=== PATIENT | male | born 2000 | race Caucasian/White ===

== ENCOUNTER 2019-10-23 12:09 | Inpatient (IN) | payer BC ==
[2019-10-23 13:24] LABS: #Monocytes 0.8 thou/uL (0.11-0.59); %Basophils 0.1 % (0.0-1.0); %Eosinophils 0.2 % (0.0-10.0); %Lymphocytes 9.2 % (21.0-51.0); %Monocytes 7.7 % (0.0-10.0); %Neutrophils 82.8 % (42.0-75.0); Hemoglobin 16.1 g/dL (14.0-18.0); Mean Corpuscular HGB CONC 34.5 g/dL (32.0-36.0); Mean Corpuscular Hemoglobin 32.5 pg (27.0-31.0); Mean Corpuscular Volume 94.3 fL (78.0-98.0); Mean Platelet Volume 7.4 fL (7.4-10.4); Platelet Count 259 thou/uL (130-400); RBC Distribution Width 11.9 % (11.5-14.5); Red Blood Cell (RBC) Count 4.97 mill/uL (4.70-6.10); White Blood Cell (WBC) Count 10.9 thou/uL (4.8-10.8)
[2019-10-23 13:49] LABS: ALT (SGPT) 61 U/L (8-55); AST (SGOT) 322 U/L (5-34); Acetaminophen Less than 6.0 mcg/mL (10.0-30.0); Albumin 4.8 g/dL (3.5-5.0); Alcohol 29 mg/dL (Less than 10); Alkaline Phosphatase 68 U/L (40-110); Anion Gap 16 mmol/L (10-20); BUN (Urea Nitrogen) 9 mg/dL (8.9-20.6); Bilirubin, Total 0.5 mg/dL (0.2-1.2); Calc. Creatinine Clearance 0 mL/min (70-130); Carbon Dioxide 26 mmol/L (22-29); Chloride 104 mmol/L (98-107); Estimated GFR-MDRD Greater than 90; Globulin 2.7 g/dL (2.4-3.5); Glucose 87 mg/dL (70-105); Potassium 4.1 mmol/L (3.5-5.1); Protein, Total 7.5 g/dL (6.0-8.3); Salicylate Less than 8.0 mg/dL (15.0-30.0); Sodium 142 mmol/L (136-145)
[2019-10-23] MEDS ORDERED: Multivitamins, Adult 10 ML, Thiamine HCl 100 MG, Folic Acid 1 MG in Dextrose 5 %-0.45 %... IV SCH (14:15)
[2019-10-23 14:17] LABS: CK (CPK) 19880 U/L (30-200)
--- NOTE | 2019-10-23 15:29 | CT ---
LUMBAR SPINE CT SCAN WITHOUT IV CONTRAST: History: Numbness in both legs FINDINGS: No evidence for acute fracture or dislocation of the lumbar spine. Mild levoscoliosis. Very mild liga ment and facet hypertrophic changes. There is a focal small calcification focus within the right SI nerve root. Etiology and significance of this is uncertain. I would doubt that this has anything to do with the patient's acute symptoms. H owever, consideration for a non-emergent follow up MRI with and without IV contrast might be consider ed. IMPRESSION: 1. No fracture or dislocation or other significant acute process. Mild levoscoliosis. 2. Small punctate calcific focus in the right SI nerve root of uncertain etiology or significance. 3. Consider non-emergent follow up MRI with and without contrast for further assessment, particularly if this patient were to have right sided S1 symptoms. POS: ADOLPH
[2019-10-23] MEDS ORDERED: Lorazepam 2 MG/ML VIAL SLOW IVP PRN (17:00)
[2019-10-23] MEDS ORDERED: Sodium Chloride 0.9% 1,000 ML IV SCH (17:00)
[2019-10-23] MEDS ORDERED: Ondansetron ODT 4 MG TAB PO PRN (17:01)
[2019-10-23] MEDS ORDERED: Diazepam 5 MG TAB PO PRN (17:01)
[2019-10-23] MEDS ORDERED: Acetaminophen 325 MG TAB PO PRN (17:01)
[2019-10-23] MEDS ORDERED: Thiamine HCl 200 MG/2 ML VIAL IM SCH ×2 (17:15→22:00)
[2019-10-23 17:57] LABS: Bacteria/HPF None Seen HPF (None Seen); Bilirubin Negative (Negative); Blood, Urine 3+ (Negative); Clarity Clear (Clear); Glucose, Urine (Dipstick) Normal (Negative); Ketone, Urine Negative (Negative); Leukocyte Negative Leu/uL (Negative); Nitrite Negative (Negative); Protein, Urine (Dipstick) 50 mg/dL (Neg-Trace); RBC/HPF None Seen HPF (0-3); Specific Gravity, Urine 1.016 (1.002-1.036); Squamous Epithelial None Seen HPF (0-3); Urobilinogen Normal mg/dL (Less than 2); WBC/HPF 0-3 HPF (0-3); pH, Urine 5.5 (5.0-9.0)
[2019-10-23 18:10] LABS: Medtox Reader # READER 4
[2019-10-23 18:11] LABS: Amphetamine Not Detected (NotDetected); Barbiturates Screen Not Detected (NotDetected); Benzodiazepine Screen Not Detected (NotDetected); Cocaine Metabolite Screen Not Detected (NotDetected); Medtox Control Line Valid? VALID (VALID); Methadone Not Detected (NotDetected); Methamphetamine Not Detected (NotDetected); Opiate Screen Not Detected (NotDetected); Oxycodone Screen Not Detected (NotDetected); Phencyclidine (PCP) Not Detected (NotDetected); THC/Cannabinoid Screen Detected (NotDetected); Tricyclic Screen Not Detected (NotDetected)
[2019-10-23 18:26] LABS: Phosphorus 3.3 mg/dL (2.3-4.7)
--- NOTE | 2019-10-23 19:00 | HP ---
PRIMARY CARE PHYSICIAN: None. CHIEF COMPLAINT: Lower extremity weakness. HISTORY OF PRESENT ILLNESS: The patient is a 19-year-old male with no significant past medical history, who presents to the ER for the above complaint. The patient reports that he began to drink alcohol yesterday afternoon at approximately 17: 30. He reports that he consumed approximately 15 to 20 beers throughout the evening and into the morning. He reports that he went home, he vomited and then fell asleep on concrete. He reports that he fell asleep in a sitting up position. He awoke around 0800 this morning and states that he could not move his legs and had some decreased sensation to both legs. He reports that he grappled with his buddies yesterday evening, but he denies any major trauma, falls or injury to his back. He has no history of any recent procedures or surgeries on his back. He has no history of any IV drug use or diabetes. He denies any recent fever or chills. He denies any abdominal pain. He reports that his last bowel movement was yesterday afternoon, it was formed. Currently, he feels a small sensation to urinate, however, he has not urinated since last night. In the ER, the patient's vital signs were stable. Normal blood pressure, normal pulse, normal respirations, normal temperature, normal SpO2. CT with contrast of his back showed no acute fracture or dislocation or other acute process. There was mild levoscoliosis. There is a small punctate calcific focus in the right SI nerve root of uncertain etiology or significance. Alcohol level was 29. CK 19,880. AST 322 and ALT 61. WBCs of 10.9. The patient was given 2 L of normal saline and one banana bag, IV piggyback and will be admitted to the floor. PAST MEDICAL HISTORY: None. PAST SURGICAL HISTORY: None. SOCIAL HISTORY: The patient currently lives alone. He is in town for an physician practice administrator. He reports that he has alcohol intake every other day. He does not smoke tobacco or cigarettes. He does admit to smoking marijuana. He ambulates without any assistive devices. FAMILY HISTORY: Noncontributory to this case. ALLERGIES: NO KNOWN DRUG ALLERGIES. HOME MEDICATIONS: None. REVIEW OF SYSTEMS: All review of systems are negative unless otherwise stated in the HPI. PHYSICAL EXAMINATION: VITAL SIGNS: Temperature 98.6, blood pressure 109/57, pulse 76, respirations 17 , and SpO2 of 97% on room air. Pain 0/10. CONSTITUTIONAL: The patient is alert and oriented to person, place, and time. He follows commands. He moves all extremities. He is generally weak to his bilateral lower extremities. He is in no acute distress. HEAD: Atraumatic and normocephalic. EYES: PERRLA. Extraocular muscles intact. Sclerae are nonicteric. ENT: Bilateral EACs, clear. TMs intact bilaterally. Nares patent bilaterally. Oropharynx is clear. Uvula midline. Moist mucous membranes. No oral lesions. NECK: Full range of motion. No cervical spinous tenderness. Trachea is midline. No cervical adenopathy. No JVD. CHEST: Respirations even and unlabored. No rhonchi, wheezes, or rales. CARDIOVASCULAR: S1 and S2 appreciated. Regular rate and rhythm. No murmurs, rubs, or gallops. ABDOMEN: Soft and nontender. Active bowel sounds. No guarding. No rigidity. No rebound. Negative Gale sign. Negative Rovsing sign. Does have a palpable bladder upon examination. BACK: Full range of motion. No central spinous tenderness. No CVA tenderness. EXTREMITIES: Upper extremities, full range of motion, normal strength, sensation intact. Palpable radial pulses. No swelling. EXTREMITIES: Lower extremities, full range of motion. Strength 4/5 bilaterally. Sensation is intact. Trace edema to bilateral lower extremities. Palpable pedal and posterior tibial pulses. NEURO: Cranial nerves 2 through 12 intact. High sensitive neuro exam of the lumbar spine, intact. The patient is generally weak to his bilateral lower extremities. PSYCHIATRIC: Normal affect. He is alert and oriented to person, place, and time. LABORATORY DATA: CT of the lumbar spine with contrast was negative for any acute fracture or dislocation with mild levoscoliosis. There is a small punctate calcific focus in the right S1 nerve root of uncertain etiology or significance. Sodium 142, potassium 4.1, chloride 104, carbon dioxide 26, anion gap 16, BUN 9, creatinine 1.01, glucose 87, calcium 9.0, total bilirubin 0.5, AST 322, ALT 61, alkaline phosphatase 68, CK is 19,880, and albumin 4.8. WBCs 10.9, hemoglobin 16.1, hematocrit 46.8, and platelets 259. Tox screen, plasma alcohol 29. IMPRESSION AND PLAN: 1. Rhabdomyolysis. We will admit the patient to the medical floor, inpatient status. Expected length of stay greater than 2 midnights. The patient presented for inability to move his lower extremities prior to arrival. Upon examination , his symptoms have improved somewhat. The patient has received 2 L of normal saline and 1 banana bag. Initial CK was 19,880. CT of his lumbar spine was negative for any acute fracture, dislocation. High sensory neural exam of the lumbar spine was intact. The patient's blood alcohol level was 29. We will continue IV fluid resuscitation. We will recheck a BMP level at 20:00. We will check a mag and phos and TSH level. We will obtain a UA and urine drug screen. We will initiate ASE protocol. We will perform neuro checks q.4. We will consult Physical Therapy. We will give sodium bicarbonate scheduled. We will get a baseline EKG. 2. Lower extremity weakness. The patient's symptoms have improved since presentation. High sensory neuro exam of lumbar spine is intact. CT of lumbar spine was negative for any acute fracture or dislocation. The patient denies any known trauma or falls. We will continue neuro checks q.4. We will continue to monitor. We will consider MRI of lumbar spine if necessary. Spinal epidural abscess or hematoma less likely. 3. Elevated LFTs. The patient presented with an AST of 322 and an ALT of 61, alkaline phosphatase was within normal limits, and total bilirubin within normal limits, likely secondary to alcohol intake. We will continue IV fluid resuscitation. Recheck levels in the a.m. 4. Marijuana abuse. The patient admits to smoking marijuana. We will director counseling bureau on smoking cessation. 5. Consult physical therapy. Heparin for deep venous thrombosis prophylaxis. Protonix for gastrointestinal prophylaxis. The patient is a full code. 6. Discussed the case with Dr. Nelson. Job ID: [id number] [facility]
[2019-10-23 20:38] LABS: Anion Gap 13 mmol/L (10-20); BUN (Urea Nitrogen) 10 mg/dL (8.9-20.6); Calc. Creatinine Clearance 0 mL/min (70-130); Calcium 8.2 mg/dL (7.8-10.44); Carbon Dioxide 26 mmol/L (22-29); Chloride 106 mmol/L (98-107); Estimated GFR-MDRD Greater than 90; Glucose 96 mg/dL (70-105); Potassium 4.1 mmol/L (3.5-5.1); Sodium 141 mmol/L (136-145)
[2019-10-23 20:41] VITALS: BMI 27.3
[2019-10-23] MEDS: Sodium Bicarbonate Tab 325 MG TAB PO SCH (22:21)
[2019-10-23] MEDS: Heparin 5,000 UNITS/ML VIAL SC SCH (22:22)
[2019-10-23] MEDS: Sodium Chloride 0.9% 1,000 ML IV SCH ×2 (22:23→22:29)
[2019-10-24] MEDS: Sodium Chloride 0.9% 1,000 ML IV SCH ×6 (03:19→23:18)
[2019-10-24] MEDS ORDERED: Diazepam 5 MG TAB PO PRN (04:00)
[2019-10-24 06:06] LABS: #Eosinphils 0.2 thou/uL (0.0-0.7); #Lymphocytes 1.5 thou/uL (1.20-3.40); #Monocytes 0.7 thou/uL (0.11-0.59); #Neutrophils 5.4 thou/uL (1.40-6.50); %Basophils 0.5 % (0.0-1.0); %Eosinophils 2.5 % (0.0-10.0); %Lymphocytes 18.6 % (21.0-51.0); %Monocytes 8.7 % (0.0-10.0); %Neutrophils 69.7 % (42.0-75.0); Hemoglobin 14.5 g/dL (14.0-18.0); Mean Corpuscular HGB CONC 33.8 g/dL (32.0-36.0); Mean Corpuscular Hemoglobin 32.4 pg (27.0-31.0); Mean Corpuscular Volume 95.9 fL (78.0-98.0); Mean Platelet Volume 7.6 fL (7.4-10.4); Platelet Count 218 thou/uL (130-400); RBC Distribution Width 12.3 % (11.5-14.5); Red Blood Cell (RBC) Count 4.46 mill/uL (4.70-6.10); White Blood Cell (WBC) Count 7.8 thou/uL (4.8-10.8)
[2019-10-24 06:33] LABS: BUN (Urea Nitrogen) 8 mg/dL (8.9-20.6); Calc. Creatinine Clearance 178 mL/min (70-130); Carbon Dioxide 28 mmol/L (22-29); Chloride 108 mmol/L (98-107); Estimated GFR-MDRD Greater than 90; Glucose 99 mg/dL (70-105); Potassium 4.2 mmol/L (3.5-5.1); Protein, Total 5.6 g/dL (6.0-8.3); Sodium 139 mmol/L (136-145)
[2019-10-24 06:34] LABS: ALT (SGPT) 76 U/L (8-55); AST (SGOT) 306 U/L (5-34); Albumin 3.6 g/dL (3.5-5.0); Alkaline Phosphatase 51 U/L (40-110); Anion Gap 7 mmol/L (10-20); Bilirubin, Total 0.4 mg/dL (0.2-1.2); Calcium 7.6 mg/dL (7.8-10.44)
[2019-10-24 06:58] LABS: CK (CPK) 13227 U/L (30-200)
[2019-10-24] MEDS: Sodium Bicarbonate Tab 325 MG TAB PO SCH ×3 (09:00→21:27)
[2019-10-24] MEDS: Magnesium Oxide 400 MG TAB PO SCH (09:01)
[2019-10-24] MEDS: Heparin 5,000 UNITS/ML VIAL SC SCH ×2 (09:01→21:28)
[2019-10-24] MEDS: Multivitamin W/ Minerals 1 TAB PO SCH (09:01)
[2019-10-24] MEDS: Folic Acid 1 MG TAB PO SCH (09:01)
[2019-10-24] MEDS: Thiamine 100 MG TAB PO SCH (09:01)
--- NOTE | 2019-10-24 13:43 | PDOC.HOSPP ---
- Subjective Encounter Date: 10/24/19 Encounter Time: 13:42 Subjective: Patient was sitting in his chair working on his laptop. Was in no acute distress and only complaint was tenderness in his legs and not being able to fully walk yet. - Objective Vital Signs & Weight: Vital Signs (12 hours) Temp Pulse Resp BP BP Pulse Ox 10/24/19 12:56 98.3 F 66 16 128/60 98 10/24/19 09:04 119/72 10/24/19 07:44 98.5 F 56 L 16 119/72 98 10/24/19 03:53 133/77 10/24/19 03:50 98.2 F 45 L 20 133/77 98 Weight Weight 83.915 kg I&O: 10/23/19 10/24/19 10/25/19 06:59 06:59 06:59 Intake Total 3390 240 Output Total 1350 2400 Balance 0 -2160 Result Diagrams: 10/24/19 05:55 10/25/19 09:16 Hospitalist ROS - Review of Systems Respiratory: denies: cough, shortness of breath Cardiovascular: reports: edema (trace ankle edema). denies: chest pain Gastrointestinal: reports: abdominal pain (slight tenderness). denies: nausea, vomiting, diarrhea Genitourinary: denies: hematuria Neurological: reports: weakness (lower extremity), numbness (sole of both feet) , incoordination (unable to walk independently). denies: change in speech, confusion, seizures - Medication Medications: Active Medications Generic Name Dose Route Start Last Admin Trade Name Freq PRN Reason Stop Dose Admin Folic Acid 1 mg 10/24/19 09:00 10/24/19 09:01 Folvite PO 1 mg DAILY PEDRITO Administration Heparin Sodium (Porcine) 5,000 units 10/23/19 21:00 10/24/19 09:01 Heparin SC 5,000 units BID PEDRITO Administration Sodium Chloride 1,000 mls @ 250 mls/hr 10/23/19 18:14 10/24/19 09:02 Normal Saline 0.9% IV 1,000 mls .Q4H PEDRITO Administration Iron/Minerals/Multivitamins 1 tab 10/24/19 09:00 10/24/19 09:01 Theragran M PO 1 tab DAILY PEDRITO Administration Magnesium Oxide 400 mg 10/24/19 09:00 10/24/19 09:01 Magnesium Oxide PO 400 mg DAILY PEDRITO Administration Pantoprazole Sodium 40 mg 10/24/19 09:00 10/24/19 09:01 Protonix PO 40 mg DAILY PEDRITO Administration Sodium Bicarbonate 650 mg 10/23/19 21:00 10/24/19 09:00 Bicarbonate, Sodium PO 650 mg TID PEDRITO Administration Thiamine HCl 100 mg 10/24/19 09:00 10/24/19 09:01 Thiamine PO 100 mg DAILY PEDRITO Administration - Exam General Appearance: NAD, awake alert Eye: PERRL, anicteric sclera ENT: normocephalic atraumatic Heart: RRR, no murmur, no gallops, no rubs, normal peripheral pulses Respiratory: CTAB, no wheezes, no rales, no ronchi Gastrointestinal: soft, non-distended, normal bowel sounds, tender to palpation (RUQ tenderness) Extremities: no cyanosis, no clubbing, 1+ LE edema (ankle edema) Skin: no rashes Neurological: cranial nerve grossly intact Neurological - other findings: decreased sensation to touch on the soles of the feet Musculoskeletal: normal tone, no muscle wasting, generalized weakness (lower extremity weakness when trying to ambulate, during neuro exam 4/5 strength bilaterally) Psychiatric: normal affect, normal behavior, A&O x 3, oriented to person, oriented to place, oriented to time Hosp A/P - Plan Rhabdomyolysis: More than likely secondary to significant alcohol usage as well as mechanical trauma from a friendly wrestling match with his friends. Continue IV fluid and encouraged oral intake. Paresthesia: Patient has regained some of his strength and sensation back in his lower extremities, but remains unable to ambulate on his own. He was able to hold his weight up using his arms on the walker, but wasn't able to bear the weight on his legs. There has been an improvement since yesterday in his strength and is now able to somewhat feel the soles of his feet. He is able to transfer himself from the bed to the chair. Patient did not report any pain in his legs, there are currently no signs of compartment syndrome present. PT was consulted and said that he is able to pivot well but is not able to ambulate yet. Will continue PT Alcohol use disorder: Patient was advised his AST and ALT levels showing an alcoholic disease pattern and the possible progression if the current pattern of drinking heavily every other day continues. Patient acknowledged that he is drinking too much and said that he will try to cut back. Vee catheter was discontinued. We will monitor how he does without it, and will add back in if it is needed. Plan to discharge patient tomorrow if creatine kinase continues to trends down appropriately and clinical picture continues to improve. if pt's weakness does not improve will get MRI lumbar spine to rule out other etiology. vee removed will monitor intake and outtake.
[2019-10-24] MEDS: Multivitamins, Adult 10 ML, Thiamine HCl 100 MG, Folic Acid 1 MG in Dextrose 5 %-0.45 %... IV SCH (15:45)
[2019-10-25] MEDS: Sodium Chloride 0.9% 1,000 ML IV SCH ×4 (03:52→17:53)
[2019-10-25] MEDS: Thiamine 100 MG TAB PO SCH (08:55)
[2019-10-25] MEDS: Folic Acid 1 MG TAB PO SCH (08:55)
[2019-10-25] MEDS: Sodium Bicarbonate Tab 325 MG TAB PO SCH ×3 (08:55→20:06)
[2019-10-25] MEDS: Magnesium Oxide 400 MG TAB PO SCH (08:55)
[2019-10-25] MEDS: Multivitamin W/ Minerals 1 TAB PO SCH (08:55)
[2019-10-25] MEDS: Heparin 5,000 UNITS/ML VIAL SC SCH ×2 (08:55→20:07)
[2019-10-25 09:46] LABS: ALT (SGPT) 83 U/L (8-55); AST (SGOT) 260 U/L (5-34); Albumin 3.6 g/dL (3.5-5.0); Alkaline Phosphatase 54 U/L (40-110); Anion Gap 11 mmol/L (10-20); BUN (Urea Nitrogen) 4 mg/dL (8.9-20.6); Bilirubin, Total 0.7 mg/dL (0.2-1.2); Calc. Creatinine Clearance 176 mL/min (70-130); Calcium 8.2 mg/dL (7.8-10.44); Carbon Dioxide 27 mmol/L (22-29); Chloride 108 mmol/L (98-107); Estimated GFR-MDRD Greater than 90; Globulin 2.1 g/dL (2.4-3.5); Glucose 88 mg/dL (70-105); Potassium 3.9 mmol/L (3.5-5.1); Protein, Total 5.7 g/dL (6.0-8.3); Sodium 142 mmol/L (136-145)
[2019-10-25 10:10] LABS: CK (CPK) 9410 U/L (30-200)
--- NOTE | 2019-10-25 11:10 | MRI ---
PELVIC MRI WITH AND WITHOUT CONTRAST: HISTORY: Unable to urinate. Lower extremity weakness. History of heavy night of drinking. Patient passed out. COMPARISON: None. FINDINGS: Appropriate T1 marrow signal intensity in the visualized bony pelvis, sacrum and lumbar spine. Postco ntrast images do not demonstrate any abnormal enhancement of the osseous structures. There is edema in the presacral fat. Visualized sacral plexus does not demonstrate any abnormal enhancing nerve roots. The fat in the sacr al neural foramina is preserved. Markedly distended urinary bladder. There is abnormal edema and enhancement involving bilateral gluteus medius muscles. The abnormal sign al intensity is similar/symmetric. Correlate for possible muscle edema or possible myositis with small microabscesses. Postcontrast images also demonstrate abnormal stranding and enhancement of the presacral fat. IMPRESSION: 1. Abnormal signal intensity involving bilateral gluteus medius muscles suggesting edema or possible microabscesses. Correlate for myositis. Correlate for possible intravenous drug usage which would account for current finding. 2. Stranding of the presacral soft tissues with edema and irregular enhancement. There may be associa sean irritation/inflammation of the sacral plexus which supplies the urinary bladder. 3. Markedly distended urinary bladder. Consider Tong catheterization. Transcribed Date/Time: 10/25/2019 12:19 PM
--- NOTE | 2019-10-25 11:15 | MRI ---
MRI LUMBAR SPINE WITH AND WITHOUT CONTRAST: HISTORY: Abnormal density/calcification noted in the right S2 nerve root on recent CT. Patient is unable to ur inate and walk. COMPARISON: None. CORRELATION: CT lumbar spine 10/23/2019. FINDINGS: Appropriate T1 marrow signal intensity of the lumbar vertebrae. Lumbar spine vertebral body height is maintained. No fracture. No significant STIR hyperintensity to suggest vertebral body edema or ligamentous injury. Appropriate signal intensity of the visualized paraspinal muscles. Appropriate signal intensity of the visualized solid organs. There is moderate bilateral hydronephros is. Conus medullaris terminates at the T12-L1 disc space. Markedly distended urinary bladder is identified. Postcontrast images: No abnormal enhancement within the thecal sac including the cauda equina and con us medullaris. Visualized left and right S1 nerve roots do not demonstrate any abnormal enhancement. There is no abnormal enhancement in the visualized S2 nerve roots. T12-L1: Adequate disc hydration. No significant central canal stenosis or significant neural foramina l narrowing. L1-L2: Adequate disc hydration. No significant central canal stenosis or significant neural foraminal narrowing. L2-L3: Adequate disc hydration. No significant central canal stenosis or significant neural foraminal narrowing. L3-L4: Adequate disc hydration. No significant central canal stenosis or significant neural foraminal narrowing. L4-L5: Adequate disc hydration. Minimal central disc herniation abuts the thecal sac. No significant central canal stenosis or significant neural foraminal narrowing. L5-S1: Adequate disc hydration. No significant central canal stenosis or significant neural foraminal narrowing. IMPRESSION: 1. Marked. Distention of the urinary bladder. Bilateral moderate hydronephrosis. 2. No abnormal enhancement within the thecal sac including the cauda equina, conus medullaris as well as visualized bilateral S1 and S2 nerve roots. No abnormal signal intensity along the course of the traversing right S2 nerve root to correspond to recent CT findings. 3. No abnormal enhancement with regards to the vertebral bodies. No significant central canal stenosi s or significant neural foraminal narrowing. Results of the lumbar spine MRI as well as the pelvic MRI conveyed via [employer] with Dr. Nelson 10/25/2019 at 11:14 AM Code CR Transcribed Date/Time: 10/25/2019 12:11 PM
--- NOTE | 2019-10-25 12:27 | PDOC.HOSPP ---
- Subjective Encounter Date: 10/25/19 Encounter Time: 08:00 Subjective: Patient was sitting up in bed unassisted and was in no acute distress. He reported that he was unable to urinate and has had to push really hard to urinate. Even with the pushing he is only able to manage a dribble of urine and complains of bladder fullness. This was an issue last night as well and the patient had a temporary catheter placed to drain the bladder. They drained almost 1 L of fluid. - Objective Vital Signs & Weight: Vital Signs (12 hours) Temp Pulse Resp BP BP BP Pulse Ox 10/25/19 07:51 97.3 F L 65 18 152/64 H 100 10/25/19 04:00 128/63 10/25/19 03:46 98.4 F 44 L 16 128/63 99 Weight Weight 83.915 kg I&O: 10/24/19 10/25/19 10/26/19 06:59 06:59 06:59 Intake Total 3390 8268 Output Total 1350 9230 150 Balance 2040 -962 -150 Result Diagrams: 10/26/19 07:04 10/26/19 07:04 Hospitalist ROS - Review of Systems Constitutional: denies: fever, chills, sweats, weakness, malaise, other Respiratory: denies: cough, dry, shortness of breath, hemoptysis, SOB with excertion, pleuritic pain, sputum, wheezing, other Cardiovascular: denies: chest pain, palpitations, orthopnea, paroxysmal noc. dyspnea, edema, light headedness, other Gastrointestinal: denies: nausea, vomiting, abdominal pain, diarrhea, constipation, melena, hematochezia, other Genitourinary: reports: retention Musculoskeletal: denies: neck pain, shoulder pain, arm pain, back pain, hand pain, leg pain, foot pain, other Neurological: reports: weakness (continues to feel a bit of weakness in his lower extremities bilaterally but reports that he feels much stronger than yesterday.), numbness (continues to complain of partial numbess on the soles of his feet, but has improved since yesterday as well) - Medication Medications: Active Medications Generic Name Dose Route Start Last Admin Trade Name Freq PRN Reason Stop Dose Admin Folic Acid 1 mg 10/24/19 09:00 10/25/19 08:55 Folvite PO 1 mg DAILY PEDRITO Administration Heparin Sodium (Porcine) 5,000 units 10/23/19 21:00 10/25/19 08:55 Heparin SC 5,000 units BID PEDRITO Administration Multivitamins 10 ml/ Thiamine 1,011.2 mls @ 0 mls/hr 10/24/19 15:00 10/24/19 15:45 HCl 100 mg/ Folic Acid 1 mg/ IV 1,011.2 mls Dextrose/Sodium Chloride Q24HR PEDRITO Administration Sodium Chloride 1,000 mls @ 100 mls/hr 10/25/19 08:53 10/25/19 09:05 Normal Saline 0.9% IV 1,000 mls .Q10H PEDRITO Administration Iron/Minerals/Multivitamins 1 tab 10/24/19 09:00 10/25/19 08:55 Theragran M PO 1 tab DAILY PEDRITO Administration Magnesium Oxide 400 mg 10/24/19 09:00 10/25/19 08:55 Magnesium Oxide PO 400 mg DAILY PEDRITO Administration Pantoprazole Sodium 40 mg 10/24/19 09:00 10/25/19 08:55 Protonix PO 40 mg DAILY PEDRITO Administration Sodium Bicarbonate 650 mg 10/23/19 21:00 10/25/19 08:55 Bicarbonate, Sodium PO 650 mg TID PEDRITO Administration Thiamine HCl 100 mg 10/24/19 09:00 10/25/19 08:55 Thiamine PO 100 mg DAILY PEDRITO Administration - Exam General Appearance: awake alert Eye: PERRL, anicteric sclera ENT: normocephalic atraumatic Heart: RRR, no murmur, no gallops, no rubs, normal peripheral pulses Respiratory: CTAB, no wheezes, no rales, no ronchi Gastrointestinal: soft, non-tender, non-distended, normal bowel sounds, no palpable masses Extremities: no cyanosis, no clubbing, no edema Neurological: cranial nerve grossly intact Musculoskeletal: generalized weakness (continues to have 4/5 strength in his lower extremity and is unable to support his weight independently) Psychiatric: normal affect, normal behavior, A&O x 3 Hosp A/P (1) Rhabdomyolysis Code(s): M62.82 - RHABDOMYOLYSIS Status: Acute (2) Abscess, gluteal Code(s): L02.31 - CUTANEOUS ABSCESS OF BUTTOCK Status: Acute (3) Urinary retention Code(s): R33.9 - RETENTION OF URINE, UNSPECIFIED Status: Acute - Plan Rhabdomyolysis: Continue IV fluid and encouraged oral intake. [place] has improved [place] 50721 yesterday to 9410 today. Paresthesia: Patient has regained some of his strength and sensation back in his lower extremities, but remains unable to ambulate on his own. There has been an improvement since yesterday in his strength and is now able to feel the soles of his feet. He is able to transfer himself from the bed to the chair. Patient did not report any pain in his legs, there are currently no signs of compartment syndrome present. PT is following Alcohol AST levels have improved from 306 to 260. Urinary retention: Tong catheter was discontinued yesterday and he was subsequently found to have urinary retention. Patient is able to start and maintain a urine stream despite feeling fullness in his bladder. Pelvic MRI showed bilateral gluteal microabscess that are impinging upon the sacral nerve roots. General surgery has been consulted. Hyrdonephrosis: Lumbar MRI also showed signs of bilateral hydronephrosis, will conduct a bilateral ultrasound to evaluate the kidneys pt's mri indicated myositiis/abscess. weavers bottom or ischial gluteal bursitis pt has no fever nor elevated wbc. possible just inflammatory due to him sitting on concrete for 4hr? will get surgery to evaluate him. He is not able to stand up and void. He does have bilateral hydro will get urology to see him and he will need Tong inserted back. will decrease his fluids to 125ml/hr.
--- NOTE | 2019-10-25 13:41 | ULT ---
Exam: Bilateral renal ultrasound HISTORY: Distended bladder COMPARISON: None Correlation: MRI lumbar spine 10/25/2019 FINDINGS: Right kidney: Normal cortical echotexture. No hydronephrosis. Right kidney measurements: 5.2 x 11.7 x 5.6 cm. Left kidney: Normal cortical echotexture. No hydronephrosis Left kidney measurements 5.6 x 12.2 x 5.5 cm. Urinary bladder: Markedly distended. Prevoid volume is 595 mL. IMPRESSION: No hydronephrosis.
[2019-10-25] MEDS: Multivitamins, Adult 10 ML, Thiamine HCl 100 MG, Folic Acid 1 MG in Dextrose 5 %-0.45 %... IV SCH (15:52)
[2019-10-25] MEDS ORDERED: HYDROcodone/Acetaminophen 5/325 mg Tablet PO PRN (21:35)
[2019-10-25] MEDS ORDERED: Morphine 2 MG/ML VIAL SLOW IVP SCH (21:45)
[2019-10-26] MEDS: Sodium Chloride 0.9% 1,000 ML IV SCH ×3 (04:00→18:53)
[2019-10-26] MEDS: Ketorolac Tromethamine 30 MG/ML VIAL IVP SCH ×4 (06:42→23:28)
[2019-10-26 07:12] LABS: #Eosinphils 0.3 thou/uL (0.0-0.7); #Lymphocytes 1.4 thou/uL (1.20-3.40); #Monocytes 0.3 thou/uL (0.11-0.59); %Basophils 0.6 % (0.0-1.0); %Eosinophils 7.4 % (0.0-10.0); %Lymphocytes 33.9 % (21.0-51.0); Hemoglobin 13.8 g/dL (14.0-18.0); Mean Corpuscular HGB CONC 33.4 g/dL (32.0-36.0); Mean Corpuscular Hemoglobin 32.7 pg (27.0-31.0); Mean Corpuscular Volume 97.9 fL (78.0-98.0); Mean Platelet Volume 7.7 fL (7.4-10.4); Platelet Count 180 thou/uL (130-400); Red Blood Cell (RBC) Count 4.23 mill/uL (4.70-6.10)
[2019-10-26 07:32] LABS: ALT (SGPT) 70 U/L (8-55); AST (SGOT) 177 U/L (5-34); Albumin 3.2 g/dL (3.5-5.0); Alkaline Phosphatase 45 U/L (40-110); Anion Gap 10 mmol/L (10-20); BUN (Urea Nitrogen) 6 mg/dL (8.9-20.6); Bilirubin, Total 0.4 mg/dL (0.2-1.2); Calc. Creatinine Clearance 185 mL/min (70-130); Calcium 8.1 mg/dL (7.8-10.44); Carbon Dioxide 28 mmol/L (22-29); Chloride 109 mmol/L (98-107); Estimated GFR-MDRD Greater than 90; Glucose 89 mg/dL (70-105); Potassium 4.1 mmol/L (3.5-5.1); Protein, Total 5.2 g/dL (6.0-8.3); Sodium 143 mmol/L (136-145)
[2019-10-26 07:44] LABS: CK (CPK) 5722 U/L (30-200)
[2019-10-26] MEDS: Multivitamin W/ Minerals 1 TAB PO SCH (09:01)
[2019-10-26] MEDS: Folic Acid 1 MG TAB PO SCH (09:02)
[2019-10-26] MEDS: Thiamine 100 MG TAB PO SCH (09:02)
[2019-10-26] MEDS: Magnesium Oxide 400 MG TAB PO SCH (09:02)
[2019-10-26] MEDS: Heparin 5,000 UNITS/ML VIAL SC SCH ×2 (09:02→20:42)
[2019-10-26] MEDS: Multivitamins, Adult 10 ML, Thiamine HCl 100 MG, Folic Acid 1 MG in Dextrose 5 %-0.45 %... IV SCH (15:53)
--- NOTE | 2019-10-26 16:42 | PDOC.HOSPP ---
- Subjective Encounter Date: 10/26/19 Encounter Time: 13:00 Subjective: pt up in chair states he feels well. - Objective Vital Signs & Weight: Vital Signs (12 hours) Temp Pulse Resp BP BP BP Pulse Ox 10/26/19 12:00 98.5 F 60 18 127/70 127/58 L 100 10/26/19 08:18 97.9 F 52 L 18 127/70 98 10/26/19 08:00 127/70 98 Weight Weight 185 lb I&O: 10/25/19 10/26/19 10/27/19 06:59 06:59 06:59 Intake Total 8268 3018 Output Total 9230 3725 950 Balance -964 -707 -950 Result Diagrams: 10/26/19 07:04 10/26/19 07:04 Hospitalist ROS - Review of Systems Cardiovascular: denies: chest pain, palpitations, orthopnea, paroxysmal noc. dyspnea, edema, light headedness, other Gastrointestinal: denies: nausea, vomiting, abdominal pain, diarrhea, constipation, melena, hematochezia, other Genitourinary: denies: dysuria, frequency, incontinence, hematuria, retention, other - Medication Medications: Active Medications Generic Name Dose Route Start Last Admin Trade Name Freq PRN Reason Stop Dose Admin Hydrocodone Bitart/Acetaminophen 1 tab 10/25/19 21:35 10/25/19 22:04 Cyrus 5/325 PO 1 tab Q4H PRN Administration Moderate Pain (4-6) Folic Acid 1 mg 10/24/19 09:00 10/26/19 09:02 Folvite PO 1 mg DAILY PEDRITO Administration Heparin Sodium (Porcine) 5,000 units 10/23/19 21:00 10/26/19 09:02 Heparin SC 5,000 units BID PEDRITO Administration Multivitamins 10 ml/ Thiamine 1,011.2 mls @ 168.533 mls/hr 10/24/19 15:00 15:52 HCl 100 mg/ Folic Acid 1 mg/ IV 1,011.2 mls Dextrose/Sodium Chloride Q24HR PEDRITO Administration Sodium Chloride 1,000 mls @ 100 mls/hr 10/25/19 08:53 10/26/19 04:00 Normal Saline 0.9% IV 1,000 mls .Q10H PEDRITO Administration Iron/Minerals/Multivitamins 1 tab 10/24/19 09:00 10/26/19 09:01 Theragran M PO 1 tab DAILY PEDRITO Administration Ketorolac Tromethamine 15 mg 10/26/19 06:00 10/26/19 14:00 Toradol IVP 10/27/19 06:01 15 mg Q6HR PEDRITO Administration Magnesium Oxide 400 mg 10/24/19 09:00 10/26/19 09:02 Magnesium Oxide PO 400 mg DAILY PEDRITO Administration Pantoprazole Sodium 40 mg 10/24/19 09:00 10/26/19 09:02 Protonix PO 40 mg DAILY PEDRITO Administration Thiamine HCl 100 mg 10/24/19 09:00 10/26/19 09:02 Thiamine PO 100 mg DAILY PEDRITO Administration - Exam Neck: negative: supple, symmetric, no JVD, no thyromegaly, no lymphadenopathy, no carotid bruit, JVD Heart: negative: RRR, no murmur, no gallops, no rubs, normal peripheral pulses, irregular, diminshed peripheral pulses, murmur present, II/IV, III/IV Respiratory: negative: CTAB, no wheezes, no rales, no ronchi, normal chest expansion, no tachypnea, normal percussion, rales, rhonchi, tachypneic, wheezes Gastrointestinal: negative: soft, non-tender, non-distended, normal bowel sounds , no palpable masses, no hepatomegaly, no splenomegaly, no bruit, no guarding, no rigidity, tender to palpation, distended, diminished bowl sounds, voluntary guarding Hosp A/P - Plan Rhabdomyolysis: More than likely secondary to significant alcohol usage as well as mechanical trauma from a friendly wrestling match with his friends. Continue IV fluid and encouraged oral intake. Paresthesia: Patient has regained some of his strength and sensation back in his lower extremities, but remains unable to ambulate on his own. He was able to hold his weight up using his arms on the walker, but wasn't able to bear the weight on his legs. There has been an improvement since yesterday in his strength and is now able to somewhat feel the soles of his feet. He is able to transfer himself from the bed to the chair. Patient did not report any pain in his legs, there are currently no signs of compartment syndrome present. PT was consulted and said that he is able to pivot well but is not able to ambulate yet. Will continue PT Alcohol use disorder: Patient was advised his AST and ALT levels showing an alcoholic disease pattern and the possible progression if the current pattern of drinking heavily every other day continues. Patient acknowledged that he is drinking too much and said that he will try to cut back. Vee catheter was discontinued. We will monitor how he does without it, and will add back in if it is needed. Plan to discharge patient tomorrow if creatine kinase continues to trends down appropriately and clinical picture continues to improve. if pt's weakness does not improve will get MRI lumbar spine to rule out other etiology. vee removed will monitor intake and outtake. 10/25 pt feels well, he is able to walk with his iv pole and not use walker. spoke with surgery who agrees that this is myositis. will add toradol for a total of 5 doses to see if this helps.
[2019-10-26] MEDS: Senokot S 8.6-50 MG TAB PO PRN (20:42)
--- NOTE | 2019-10-26 22:48 | CON ---
DATE OF CONSULTATION: 10/26/2019 CONSULTING: [facility]. REASON FOR CONSULTATION: Urinary retention. CHIEF COMPLAINT: I have this catheter. HISTORY OF PRESENT ILLNESS: Dank is a 19-year-old white male who was admitted to the hospital after blacking out after a significant episode of drinking alcohol. He apparently drank almost 15-20 beers throughout the evening into the morning and subsequently vomited and fell asleep on the concrete. He fell asleep in a sitting up position and slept like that for approximately 12 or more hours. He was found in this position and had significant lower extremity weakness with an inability to walk. Out of concern, he was taken to the emergency room where he was admitted and underwent imaging with both lumbar and pelvic MRI. During these imagings it was noted the patient had severe urinary distention with bilateral moderate hydronephrosis on the lumbar MRI. A subsequent renal ultrasound was done, which did no longer demonstrated hydronephrosis, but the patient was still not able to urinate adequately. He claimed that he was having to strain and push very hard only get small amounts of urine out and had a markedly distended bladder. I was consulted and I recommended placement of a Tong catheter. Upon my arrival to discuss with the patient, he reports that prior to this episode, the patient never had any urinary complaints. He had no history of hematuria, urinary tract infections, incontinence, previous urologic surgeries, urolithiasis or any other voiding difficulties or complaints. Since his injury where he was in a prolonged sitting position, he now has fairly severe lower extremity weakness, which is recovering and now has a great deal of difficulty urinating. He also reports that he has not had a bowel movement in approximately 3 to 4 days. He is not complaining of any significant pain anymore other than some tingling and numbness as well as mild pain on his buttocks, but nothing severe. When the catheter was placed, the patient reports that almost 1500 mL was drained out of his bladder. He states his catheter is not really bothering him currently and he is doing fine with it. ALLERGIES: NONE. HOME MEDICATIONS: None. PAST MEDICAL HISTORY: None. PAST SURGICAL HISTORY: None. SOCIAL HISTORY: Patient currently lives alone on his own. He is currently here for an health information internship. He states that he does drink alcohol usually every other day, but denies smoking tobacco or cigarettes. He does occasionally use marijuana. FAMILY HISTORY: Noncontributory. REVIEW OF SYSTEMS: A 12-point review of system was reviewed with the patient. Pertinent positives and negatives were noted in the HPI, as well as urologic review of systems. Remainder of the 12-point review of systems reviewed and otherwise negative. PHYSICAL EXAMINATION: VITAL SIGNS: Temperature 98.5, pulse 60, respirations 18, blood pressure 127/58, saturation 100% on room air. GENERAL: No apparent distress, communicative, alert. Well nourished, well developed, appears stated age, non-obese. HEENT: Normocephalic, atraumatic. Pupils are symmetric and round. Sclerae nonicteric. Trachea midline. Moist mucous membranes. CARDIOVASCULAR: Regular rate and rhythm. Normal S1, S2. Symmetric pulses. CHEST: Nonlabored breathing, symmetric expansion. LUNGS: Clear anteriorly. ABDOMEN: Soft, nontender, and nondistended. Positive bowel sounds. : Tong catheter in place, draining clear yellow urine, secured. EXTREMITIES: No clubbing, cyanosis, or edema. NEUROLOGIC: The patient does have 4/5 strength of the lower extremities. Upper extremities are normal. Mild decrease in sensation around the genitalia. SKIN: Warm, dry. No rash or lesions. Good turgor. PSYCHIATRIC: Alert and orient x3. Appropriate mood and affect. LABORATORY EVALUATION: A full set of labs are in the [facility] system, which I reviewed. Of note, the patient's creatinine is 0.75. White count currently is 4, hemoglobin 13.8. Creatine kinase was 13,000, has now decreased down to 5000. IMAGING: Review, the patient's lumbar spine MRI demonstrated bilateral hydronephrosis, moderate with severely overdistended bladder. Pelvic MRI demonstrated high likelihood for urinary retention along with microabscesses and significant inflammation along the presacral area, buttocks and gluteal regions with a markedly distended bladder. Subsequent renal ultrasound done October 24 does not demonstrate hydronephrosis within the kidneys and the kidneys were otherwise unremarkable. ASSESSMENT AND PLAN: A 19-year-old white male with rhabdomyolysis and presacral neural irritation with likely temporary neurogenic bladder with concurrent overdistention injury. The patient had acute alcohol intoxication and likely alcohol poisoning resulting in being significantly blacked out, which resulted in the mentioned conditions. 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 My suspicion is that the significant presacral irritation and edema caused by prolonged sitting in the same position while blacked out resulted in significant presacral inflammation, which affected his pelvic plexus of nerves resulting in neurogenic bladder failure. As a result the urine and amount of alcohol that he took resulted in diuresis and significant overdistention of the bladder resulting in backed up urine into the kidneys. The overdistention injury coupled with the patient's neurogenic bladder dysfunction resulted in the urinary retention the patient experienced. The treatment is generally time along with decompression and rest of the bladder with a Tong catheter. I would recommend keeping the catheter in for at least one week. We can attempt a voiding trial in 1 week and the patient can attempt to ambulate and perform physical therapy to improve his nervous system functioning, which should help his nerve irritation. Avoid constipation and further medications, which may suppress his nervous system such as alcohol, muscle relaxants or narcotics. I will plan a voiding trial in about a week. If he fails, we can always teach him CIC or reinsert the catheter. It may take up to 6 weeks for recovery, but I am generally hopeful the patient should have full functional recovery of his bladder. I did caution that there is a small possible chance of permanent bladder dysfunction, which we can address and discuss options for in the future, if this occurs. I answered all his questions and he does understand everything. I will plan to see him in approximately 1 week with a void trial. SUMMARY OF RECOMMENDATIONS: 1. Keep Tong catheter in for at least 1 week. The patient should have leg bag teaching and a gravity bag for drainage. 2. Avoid constipation, nervous system suppressants and patient should ambulate as much as possible to increase nervous system functioning. 3. The patient can be discharged whenever deemed appropriate by the primary medical team with his Tong catheter and I will see him in 1 week for a void trial. Job ID: [id number]
[2019-10-27 04:47] LABS: ALT (SGPT) 78 U/L (8-55); AST (SGOT) 185 U/L (5-34); Albumin 3.3 g/dL (3.5-5.0); Alkaline Phosphatase 44 U/L (40-110); Anion Gap 12 mmol/L (10-20); BUN (Urea Nitrogen) 9 mg/dL (8.9-20.6); Bilirubin, Total 0.3 mg/dL (0.2-1.2); Calc. Creatinine Clearance 187 mL/min (70-130); Calcium 8.1 mg/dL (7.8-10.44); Carbon Dioxide 24 mmol/L (22-29); Chloride 107 mmol/L (98-107); Estimated GFR-MDRD Greater than 90; Glucose 85 mg/dL (70-105); Potassium 3.9 mmol/L (3.5-5.1); Protein, Total 5.3 g/dL (6.0-8.3); Sodium 139 mmol/L (136-145)
[2019-10-27 05:00] LABS: CK (CPK) 5189 U/L (30-200)
[2019-10-27] MEDS: Sodium Chloride 0.9% 1,000 ML IV SCH (05:27)
[2019-10-27] MEDS: Ketorolac Tromethamine 30 MG/ML VIAL IVP SCH (05:28)
[2019-10-27 07:55] VITALS: BP 119/59; TEMP 97.9
[2019-10-27] MEDS: Heparin 5,000 UNITS/ML VIAL SC SCH (08:27)
[2019-10-27] MEDS: Folic Acid 1 MG TAB PO SCH (08:27)
[2019-10-27] MEDS: Senokot S 8.6-50 MG TAB PO PRN (08:27)
[2019-10-27] MEDS: Thiamine 100 MG TAB PO SCH (08:28)
[2019-10-27] MEDS: Multivitamin W/ Minerals 1 TAB PO SCH (08:28)
[2019-10-27] MEDS: Magnesium Oxide 400 MG TAB PO SCH (08:28)
[2019-10-27] MEDS ORDERED: Polyethylene Glycol 3350 17 GM Packet PO SCH (09:00)
--- NOTE | 2019-10-27 21:22 | DIS ---
DATE OF ADMISSION: 10/23/2019 DATE OF DISCHARGE: 10/27/2019 DISCHARGE DIAGNOSES: As of the followin. Ischiogluteal bursitis, most likely secondary to compression from prolonged sitting. 2. Alcohol intoxication. 3. Rhabdomyolysis. 4. Urinary retention. HOSPITAL COURSE: The patient is a 19-year-old male, who initially came into the hospital with complaints of lower extremity weakness. He was found to have a rhabdomyolysis. CK of 19,000. At this time, patient was hydrated excessively. He also had a CT lumbar spine with IV contrast that indicated a small punctate calcified focus in the right S1 nerve root of uncertain etiology or significance. At this time, the patient continued to improve, however, not significantly. Pelvic MRI was done which indicated abnormal signal involving bilateral gluteal medius muscle suggesting of edema or possible microabscesses. Also, stranding of the parasacral soft tissue with edema and irregular enhancement and markedly distended urinary bladder. At this time, patient initially did have a Tong catheter which was then removed, however, had to be reinserted because the patient was unable to urinate. We did get Urology involved. The patient now has a Tong catheter and will be discharged home with a Tong catheter. The patient will follow up in about a week with urologist for removal of the Tong catheter. The patient had no leukocytosis, no fever. He had no elevated neutrophils or elevated WBCs. Again, no fevers. No erythema was noted externally. I did curbside Surgery, who did not think this was an abscess. This was most likely secondary to patient's prolonged sitting in one position for about four to five hours or even longer, because he was drunk. The patient stated that he fell asleep in a sitting position on the concrete. 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 The patient is not able to ambulate, initially required a walker. However, now he is able to ambulate. He still has urinary retention. He has had a bowel movement. The patient will follow up with Urology as an outpatient in one week. I have provided a phone number, however, the patient will be going to [facility]. I also recommend the patient to follow up with his primary care doctor. I have discussed with him in depth about refraining from alcohol abuse. The patient understands that. While he was in the hospital, I also gave him a total of five doses of Toradol. He tolerated well. His CK value was 5000 and his LFTs were trending down very nicely. I have encouraged him to drink lots of water. I will also give him vitamin B12 prescription. His vitamin B12 level was 493. His home prescriptions will just be vitamin B12 and MiraLAX as needed. HOME MEDICATIONS: 1. Vitamin B12 of 1000 mcg daily. 2. MiraLAX. 3. He can take [id number] multivitamin. PHYSICAL EXAMINATION: VITAL SIGNS: On discharge, temperature of 97.9, 48, 18, 97% on room air, 119/59. GENERAL: He is awake, alert, and oriented x3. Does not appear in distress. CV: S1, S2 present. No murmurs, rubs, or gallops. ABDOMEN: Soft, nontender. Bowel sounds are present x2. NEURO: He is able to ambulate. His strength has almost resumed. He does have some numbness to his bilateral lower extremity, however, this has markedly improved. Job ID: [id number]
--- NOTE | 2019-11-01 13:07 | PQF ---
CLINICAL DOCUMENTATION CLARIFICATION FORM: Dear : ___Jayda Nelson MD DateTime:_2019 Please exercise your independent, professional judgment in responding to the clarification form. Clinical indicators are provided on the bottom of this form for your review Please check appropriate box(es): [ ] Traumatic rhabdomyolysis [ x] Non traumatic rhabdomyolysis [ ] Other diagnosis [ ] Unable to determine Physician Signature: Date/Time: For continuity of documentation, please document condition throughout progress notes and discharge summary. Thank You To be completed by CDI/Coding staff for physician review: w Present w Clinical Indicators - Signs / Symptoms / Labs w Results and Location in Medical Record w [x ] w Rhabdomyolysis w , 10/26, Jayda Nelson MD w [x ] w His CK value was 5000 and his LFT were trending down very nicely w , 10/26, Jayda Nelson MD w [x ] w Ischiogluteal Bursitis also known as rodriguez bottom syndrome most likely caused the patient to have nerve compression, which caused a lot of lower extremity neurological issues w , 10/26, Jayda Nelson MD w [ x ] w Rhabdomyolysis more than likely sec to significant alcohol usage as well as mechanical trauma from a friendly wrestling match with his friends w Hospital PN, 10/25, Jayda Nelson MD w Present w Risk Factors w Results and Location in Medical Record w [x ] w Alcohol use disorder w [facility] PN, 10/25Omar Karishma MD w [ x] w Prolonged sitting w , 10/26Omar Karishma MD w w w w w w w Present w Treatments w Results and Location in Medical Record w [x ] w Muscle relaxants w Consult note, 10/25Luis MD w [ x ] w Sodium chloride .IV w MAR, 10/22 w w w w w w CDS/Undertaker Helper Signature: Ari Vuvasquez Phone #: [phone] Date/Time:_11/01/2019 This is a permanent part of the Medical Record [facility]
== END 2019-10-27 13:49 | disposition home or self-care (01) | DRG 558 ==
LOC: ERS 12:09 → ONC 16:14
PROVIDERS: ADMIT Internal Medicine; ATTEND Internal Medicine
DX: M62.82 Rhabdomyolysis (principal); L02.31 Cutaneous abscess of buttock; N13.30 Unspecified hydronephrosis; M70.72 Other bursitis of hip, left hip; F10.129 Alcohol abuse with intoxication, unspecified; R33.9 Retention of urine, unspecified; G58.9 Mononeuropathy, unspecified; E86.0 Dehydration; F12.10 Cannabis abuse, uncomplicated
CPT/HCPCS: 36415; 51701; 72131; 72158; 72197; 76770; 80053; 80306; 80307; 81003; 81015; 82550; 82607; 82746; 83735; 84100; 84443; 85025; 93005; 93010; 96361; 96365; 96366; J1644; J1885; J3411; J3475; J3490; J7042